=== PATIENT | male | born 1985 | race Caucasian/White ===

== ENCOUNTER 2017-06-14 10:25 | Emergency (ER) | payer MEDICAID ==
[2017-06-14] MEDS: ONDANSETRON (ODT) 4 MG TAB ODT (13:04)
[2017-06-14] MEDS: HYDROCODONE/APAP (5/325) TAB PO (13:05)
== END 2017-06-14 14:19 | disposition home or self-care (01) ==
LOC: FTE 10:25
DX: R07.81 Pleurodynia (principal)
CPT/HCPCS: 71045; 71100; 99283-25